=== PATIENT | female | born 1980 | race Two or more races ===

== ENCOUNTER → 2023-09-21 07:53 | Outpatient (BNVA) | payer OTHER, SELFPAY | PROVIDERS: Visit Provider Physician Assistant ==

== ENCOUNTER 2023-10-12 13:42 | Outpatient (AMB) | payer OTHER, SELFPAY ==
--- NOTE | 2023-10-12 13:50 | MHC.OFFVISWM ---
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 She heard about our program from a friend. Her goal is to lose weight and achieve a healthy lifestyle as well as to improve, if not resolve, obesity related medical conditions, including HTN. She reports first being concerned about her weight 20 years ago after the of her son, highest weight to date was 252. Current weight is 228 pounds with a BMI of 41.1. She has tried multiple methods of weight loss including fad diets, hypnosis without permanent results. She lives with her 2 kids. 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 She wakes at:?6 am, and goes to bed at?10 pm. Dinner is at 630 pm. Breakfast: breakfast sandwich (soares egg and cheese) or omelet or oatmeal AM snack: skip Lunch: baked chicken w veg or wrap w crispy chicken PM snack: candy, chips Dinner: air rodriguez chicken w potato, veggies, pork chops w rice After dinner: banana, chips Other snacks: cookies, ice cream Liquids: seltzer water 36 oz daily, 32 oz water, no soda, no juice Alcohol/marijuana/tobacco intake: 2 drinks per month, no cannabis, no tobacco Exercise: none has a walker pad GERD score: 0 DANIAL score: 0 ESS score: 4 [facility]: [facility] Hx of colonoscopy Hx of bilateral salpingectomy Review of Systems Const All systems reviewed & are unremarkable except as noted in HPI and below Physical Exam Vital Signs: Last Vital Signs Temp 97.3 F 10/12/23 14:00 Pulse 106 H 10/12/23 14:00 BP 143/89 H 10/12/23 14:00 Pulse Ox 100 10/12/23 14:00 Oxygen Delivery Method Room Air 10/12/23 14:00 BMI result Body Mass Index 41.0 Const General: cooperative, healthy appearing and no acute distress Orientation/consciousness: patient oriented x3 HEENT Head: Yes normal to inspection Ears: hearing grossly normal bilaterally General nose exam: Normal external nose present Face and sinus: Yes normal facial exam Eyes General: appearance normal, both eyes and all related structures Resp Effort & Inspection: normal respiratory effort Auscultation: clear to auscultation bilaterally Cardio Rate: regular rate Rhythm: regular rhythm Heart sounds: S1 normal heart sound present and S2 normal heart sound present GI Inspection: Yes normal to inspection, No distended and Yes obesity Palpation (GI): Soft to palpation, nontender and no guarding Auscultation: normal bowel sounds Skin General skin exam: no rashes or lesions noted Neuro General: patient oriented x3 Extrem General: No edema Psych Appearance: grossly normal Mental Status: mental status grossly normal Speech and movement: Normal speech and movement present Affect: normal affect Attitude: cooperative Assessment & Plan Assessment & Plan (1) Morbid obesity: Code(s): E66.01 - Morbid (severe) obesity due to excess calories Plan: This is a?43 yo female who will start our M[facility] program.? She is considering possibly transitioning to a surgical weight loss pathway however at this time wishes to pursue medical weight loss. We will have her follow-up with Aixa, our registered dietitian, followed by appointments with me and then me again over the next several months. ? Adequate sleep of 7-8 hours per night discussed, awakening at 6 am and going to bed at 10 pm ? Purchase body composition analyzer scale ([employer] recommended) and check weight weekly. The best time to do this is first thing in the morning after going to the bathroom. 1. Nutritional counseling: Be sure to careful read the number of scoops per shake Start with 2 Celebrate Rebuild shakes ([facility] [employer], [employer]), (1.5 scoops in 12 oz unsweetened almond milk) First shake at 7am-9am, Second shake at 11am-1pm 2 protein bars ([employer] bars at [facility] [employer], [employer]) First bar at 2pm-4pm. Dinner at 630pm (8 forks of protein and 8 forks of salad/vegetables). Meal to include lean meat (beef, fish, pork, turkey, chicken), cooked vegetables or a salad with olive oil and/or fruits (berries, pears, apples, kiwi). Avoid salt, breads, potatoes, rice, pasta, desserts. Another bar at 8pm-10pm. Try to drink 64 oz of water daily and avoid soda and juices. ?2. Each shake would be drunk slowly, like coffee in a period of 2 hours. ?3. Cut each bar in 4 pieces and eat each piece in 30 min ?to make each bar last 2 hours. ?4. I emphasized the importance of measuring accurately the food portion and measure it carefully when serving the food on the plate ?5. The meal portions include 8 full-size forks of meat and 8 full-size forks of salad. You always eat the meat portion but you can replace up to half of the forks of salad/vegetables with rice, potatoes or pasta, or a fruit ?if you like. The less you do it the better weight loss will be. ?6. One full-size fork is what can be scooped on the fork without falling aside and not what can be bit with the fork. Use regular forks like those you find in a typical restaurant. ?7.? Please send me weight measurements as soon as possible and then once a week. Always include your diet and exercise plan. Alternatively come weekly at the office for weight checks and send me the measurements. ?8. Exercise counseling: Begin by watching a stretching for beginners video. Start slowly and begin to stretch your muscles. You should do this before and after each exercise session to prevent injury. Please join [employer] gym near your home. Ask the group fitness manager or one of the trainers how to use the machines if you are unfamiliar with them. Start elliptical with a resistance of 2. Increase resistance by 1 every 3 min to your most comfortable resistance with a max resistance of 8. Reduce the resistance by 1 every 3 minutes back down to 2 and repeat cycles for 300 calories. Alternatively, start treadmill with a speed of 3.0 and incline of 0, increasing incline by 1 every 3 minutes to the highest comfortable level (max 6 for now) then decrease in the same fashion. Repeat process to a goal of 300 calories. Goal of 2000 calories burned or more weekly. You may also consider use of the stationary bike. The easiest would be to chose the fat-burn or interval training program on the machine and do this until you reach the 300 calorie goal. Alternatively, you can manually adjust the resistance in a similar fashion as mentioned above, (resistance of 2-8 with a goal speed of 12 mph). Tracking calories is essential. 9. Alternatively start walking outside daily, tracking calories with a goal of 300 calories per day, daily. You can download the [employer]och [employer] which can track your time, distance and calories while walking outside. You press start in the enoch when you start and then stop when you are finished. 10.? It is important to communicate by text with me weekly, your weight and if you are having any problems with the plans 11. Discussed and answered all questions regarding?obtained consent to participate in the [place] [facility]?Registry. 12. Please follow the diet plan exactly, without any change. If you do not like something about the plan or you feel hungry, you need to communicate with me so I can help you revise the plan. You should not change the plan yourself. Text me at [phone] 13. Goal is to lose at least 12 pounds in the first month Patient is morbidly obese and is not considered stable at this time.?I spent a total of 70 minutes reviewing/updating records, examining the patient and counseling the patient on weight management as detailed above. Coding Level of Care Code New Pt Level 5 (06773) Diagnoses Morbid obesity E66.01 Time Spent (min) 70
[2023-10-12 14:00] VITALS: BP 143/89; PULSE 106; TEMP 36.3; O2SAT 100; BMI 41.0
== END 2023-10-12 15:47 | disposition home or self-care (01) ==
PROVIDERS: Visit Provider Physician Assistant Surgical
DX: E66.01 Morbid (severe) obesity due to excess calories (principal); Z68.41 Body mass index [BMI] 40.0-44.9, adult
CPT/HCPCS: 99205

== ENCOUNTER → 2023-10-12 13:42 | Outpatient (BNVA) | payer OTHER, SELFPAY | PROVIDERS: Visit Provider Physician Assistant Surgical ==